=== PATIENT | male | born 1995 | race African-American/Black ===

== ENCOUNTER 2016-04-11 16:11 | Emergency (ER) | payer OTHER ==
[~2016-04-11] VITALS: Wt 71.0 kg
[2016-04-11 17:53] LABS: ADD UMIC YES; URINE BILIRUBIN (Dip) NEGATIVE (NEGATIVE); URINE BLOOD (Dip) 3+ (NEGATIVE); URINE COLOR RED (YELLOW); URINE GLUCOSE (Dip) NEGATIVE (NEGATIVE); URINE KETONES (Dip) TRACE (NEGATIVE); URINE LEUKOCYTE ESTERASE (Dip) NEGATIVE (NEGATIVE); URINE NITRITE (Dip) NEGATIVE (NEGATIVE); URINE TOTAL PROTEIN (Dip) 2+ (NEGATIVE); URINE UROBILINOGEN (Dip) 0.2 E.U./dL (0.1-1.0)
[2016-04-11 18:01] LABS: BACTERIA,URINE FEW; URINE RBCS >200 /HPF (0)
[2016-04-11] MEDS ORDERED: AZITHROMYCIN 250 MG TAB PO STA (18:15)
[2016-04-11] MEDS ORDERED: LIDOCAINE 1% (MDV) 20 ML INJ ONE (18:26)
[2016-04-11] MEDS ORDERED: CEFTRIAXONE 500 MG INJ IM ONE (18:30)
--- NOTE | 2016-04-11 19:01 | ERD ---
ER Documentation Chief Complaint Date/Time DATE: 04/11/16 TIME: 18:51 Chief Complaint BLOOD IN URINE X5 DAYS, NO N/V, NO DISCHARGE HPI This is a 20-year-old male presenting to the emergency department complaining of painful urination for the past few days. Patient states that started have blood in the urine today. He believes that he also has slight discharge with the blood. Patient denies any flank pain, abdominal pain, fevers. Patient states that he is sexually active in the last few times he did not use protection. ROS All systems reviewed and are negative except as per history of present illness. Allergies Allergies: Coded Allergies: No Known Allergy (Unverified , 04/11/16) PMhx/Soc Medical and Surgical Hx: pt denies Medical Hx, pt denies Surgical Hx Hx Alcohol Use: Yes Hx Substance Use: Yes Hx Tobacco Use: Yes Smoking Status: Current every day smoker Physical Exam Vitals Vital Signs Date Time Temp Pulse Resp B/P Pulse Ox O2 Delivery O2 Flow Rate FiO2 04/11/16 16:18 97.6 72 17 136/62 100 Physical Exam GENERAL: well-developed/well-nourished, in no apparent distress, non-toxic appearing HENT: NC/AT, moist mucous membranes EYES: Conjunctiva normal NECK: Supple, no lymphadenopathy PULM: CTA bilaterally, no rales, rhonchi, or wheezing heard CV: Normal S1S2, RRR, good capillary refill GI: Soft, non-distended, non-tender to palpation Normal bowel sounds, no masses or organomegaly felt on exam No gross peritonitis, no bruits Negative Rovsing, negative Sierra, negative McBurney's point, Negative CVAT BACK: No masses EXT: No clubbing, cyanosis, or edema NEURO: Alert and Orientated SKIN: Intact, normal turgor PSYCH: Normal mood and mentation Results 24 hrs Laboratory Tests Test 04/11/16 17:39 Urine Bacteria FEW Urine Bilirubin NEGATIVE Urine Clarity TURBID Urine Color RED Urine Epithelial Cells FEW Urine Glucose NEGATIVE% Urine Hemoglobin 3+ Urine Ketones TRACE Urine Leukocyte Esterase NEGATIVE Urine Microscopic RBC >200/HPF Urine Microscopic WBC 5-10/HPF Urine Nitrite NEGATIVE Urine Specific [place] 1.020 Urine Total Protein 2+ Urine Urobilinogen 0.2 E.U./dL Urine pH 6.0 Current Medications Medications (Trade) Dose Ordered Sig/Stacey Route PRN Reason Start Time Stop Time Status Last Admin Dose Admin Ceftriaxone Sodium (Rocephin) 500 mg ONCE ONCE IM 04/11/16 18:30 04/11/16 18:31 DC 04/11/16 18:24 Azithromycin (Zithromax) 1,000 mg ONCE STAT PO 04/11/16 18:15 04/11/16 18:16 DC 04/11/16 18:23 Lidocaine (Xylocaine 1% (Mdv) 20 ml) 20 ml STK-MED ONCE .ROUTE 04/11/16 18:26 04/11/16 18:27 DC Procedures/MDM This is a 20-year-old male presenting to the emergency department complaining of painful urination for the past few days with hematuria that started today. Patient's dysuria is most likely due to urethritis due to STD. UA was done and was negative for leukocyte esterase and nitrite, Patient had hematuria. A urine culture was sent out. A gonorrhea chlamydia culture was also sent out. In the ED patient was treated for gonorrhea and chlamydia with ceftriaxone 250 mg IM and 1000 mg azithromycin. I discussed the patient to follow-up with his primary care physician for further evaluation and management. I have discussed return to the ER for any worsening signs or symptoms. At this point I have a low suspicion for nephrolithiasis or pyelonephritis, patient has no CVA tenderness or abdominal pain. He is afebrile and appears well. He stable for discharge with precautions to return to the ER for any worsening signs or symptoms are not improving as expected. He understands and agrees with this plan was consulted regarding patient and agrees with plan above Departure Diagnosis: Primary Impression: Hematuria Condition: Stable Patient Instructions: Understanding STDs, Hematuria Additional Instructions: FOLLOW UP WITH YOUR PRIMARY CARE PHYSICIAN TOMORROW.Return to this facility if you are not improving as expected. SHAWANDA BRIONES PA-C Apr 11, 2016 19:01
== END 2016-04-11 18:15 | disposition home or self-care (01) ==
LOC: FTE 16:11
DX: R31.9 Hematuria, unspecified (principal); F17.210 Nicotine dependence, cigarettes, uncomplicated
CPT/HCPCS: 81001; 87086; 87591; J0696; Z7610; 81003; 96372

== ENCOUNTER 2016-06-18 18:38 | Emergency (ER) | payer OTHER ==
[~2016-06-18] VITALS: Ht 193 cm; Wt 70.5 kg
[2016-06-18 18:41] VITALS: Ht 193 cm; Wt 70.5 kg
[2016-06-18 19:17] LABS: ADD SCAN DIFF NO
[2016-06-18 19:21] LABS: BASOPHIL # 0.1 10^3/ul (0.0-0.1); BASOPHILS % 0.6 % (0.0-2.0); EOSINOPHILS # 0.1 10^3/ul (0.0-0.5); EOSINOPHILS % 1.7 % (0.0-7.0); HEMATOCRIT 44.9 % (42.0-52.0); LYMPHOCYTES # 2.6 10^3/ul (0.8-2.9); LYMPHOCYTES % 33.2 % (18.0-55.0); MEAN CORPUSCULAR HEMOGLOBIN 27.3 pg (29.0-33.0); MEAN CORPUSCULAR HGB CONC 33.4 g/dl (32.0-37.0); MEAN CORPUSCULAR VOLUME 81.8 fl (72.0-104.0); MEAN PLATELET VOLUME 10.3 fl (7.4-10.4); MONOCYTE # 0.8 10^3/ul (0.3-0.9); MONOCYTES % 9.7 % (0.0-13.0); NEUTROPHIL # 4.2 10^3/ul (1.6-7.5); NEUTROPHILS % 54.5 % (30.0-74.0); PLATELET COUNT 266 10^3/UL (140-415); RED BLOOD COUNT 5.49 10^6/ul (4.70-6.10); RED CELL DISTRIBUTION WIDTH 13.2 % (11.5-14.5); WHITE BLOOD COUNT 7.7 10^3/ul (4.8-10.8)
[2016-06-18 19:22] LABS: ADD UMIC NO; URINE BILIRUBIN (Dip) NEGATIVE (NEGATIVE); URINE BLOOD (Dip) NEGATIVE (NEGATIVE); URINE COLOR LT. YELLOW (YELLOW); URINE GLUCOSE (Dip) NEGATIVE (NEGATIVE); URINE KETONES (Dip) TRACE (NEGATIVE); URINE LEUKOCYTE ESTERASE (Dip) NEGATIVE (NEGATIVE); URINE NITRITE (Dip) NEGATIVE (NEGATIVE); URINE TOTAL PROTEIN (Dip) NEGATIVE (NEGATIVE); URINE UROBILINOGEN (Dip) 0.2 E.U./dL (0.1-1.0)
[2016-06-18 19:28] LABS: ALBUMIN 4.6 g/dl (3.3-4.9)
[2016-06-18 19:29] LABS: POTASSIUM 3.8 mmol/L (3.5-5.1)
[2016-06-18 19:31] LABS: ALBUMIN/GLOBULIN RATIO 1.35; BILIRUBIN,INDIRECT 0.7 mg/dl (0-1.1); BILIRUBIN,TOTAL 0.7 mg/dl (0.2-1.3); CREATININE 1.01 mg/dl (0.61-1.24)
--- NOTE | 2016-06-18 19:54 | ERA ---
ER Documentation Chief Complaint Date/Time DATE: 06/18/16 TIME: 19:54 Chief Complaint painful urination x 2 days HPI This 20-year-old male presents with dysuria for last 2 days. Denies any hematuria, fevers, flank pain, penile discharge. He was seen approximately 2 months ago for similar episodes although at that time he had hematuria. He was treated for infection which did not relieve his symptoms but his symptoms resolved. He has never had any flank pain. Patient had negative gonorrhea and chlamydia at that time as well upon review of the record. Patient denies any blisters, redness. He has no known exposure to STD although he is sexually active. ROS All systems reviewed and are negative except as per history of present illness. Allergies Allergies: Coded Allergies: No Known Allergy (Unverified , 06/18/16) PMhx/Soc Medical and Surgical Hx: pt denies Medical Hx, pt denies Surgical Hx History of Surgery: No Anesthesia Reaction: No Hx Neurological Disorder: No Hx Respiratory Disorders: No Hx Cardiac Disorders: No Hx Psychiatric Problems: No Hx Miscellaneous Medical Probl: No Hx Alcohol Use: Yes (OCC) Hx Substance Use: Yes Hx Tobacco Use: Yes Smoking Status: Current every day smoker Physical Exam Vitals Vital Signs Date Time Temp Pulse Resp B/P Pulse Ox O2 Delivery O2 Flow Rate FiO2 06/18/16 18:41 98.4 73 20 145/72 100 Physical Exam Const: [] Head: Atraumatic Eyes: Normal Conjunctiva ENT: Normal External Ears, Nose and Mouth. Neck: Full range of motion..~ No meningismus. Resp: Clear to auscultation bilaterally Cardio: Regular rate and rhythm, no murmurs Abd: Soft, non tender, non distended. Normal bowel sounds Skin: No petechiae or rashes Back: No midline or flank tenderness Ext: No cyanosis, or edema Neur: Awake and alert Psych: Normal Mood and Affect Result Diagram: 06/18/16190106/18/161901 Results 24 hrs Laboratory Tests Test 06/18/16 18:56 06/18/16 19:02 Urine Bilirubin NEGATIVE Urine Clarity CLEAR Urine Color LT. YELLOW Urine Glucose NEGATIVE% Urine Hemoglobin NEGATIVE Urine Ketones TRACE Urine Leukocyte Esterase NEGATIVE Urine Nitrite NEGATIVE Urine Specific [place] 1.025 Urine Total Protein NEGATIVE Urine Urobilinogen 0.2 E.U./dL Urine pH 6.0 Alanine Aminotransferase (ALT/SGPT) 32IU/L Albumin 4.6g/dl Albumin/Globulin Ratio 1.35 Alkaline Phosphatase 63IU/L Anion Gap 18 Aspartate Amino Transf (AST/SGOT) 45IU/L Basophils # 0.110^3/ul Basophils % 0.6% Blood Urea Nitrogen 17mg/dl Calcium Level 10.0mg/dl Carbon Dioxide Level 28mmol/L Chloride Level 101mmol/L Creatinine 1.01mg/dl Direct Bilirubin 0.00mg/dl Eosinophils # 0.110^3/ul Eosinophils % 1.7% Globulin 3.40g/dl Glucose Level 82mg/dl HIV (1&2) Antibody NEGATIVE Hematocrit 44.9% Hemoglobin 15.0g/dl Indirect Bilirubin 0.7mg/dl Lymphocytes # 2.610^3/ul Lymphocytes % 33.2% Mean Corpuscular Hemoglobin 27.3pg Mean Corpuscular Hemoglobin Concent 33.4g/dl Mean Corpuscular Volume 81.8fl Mean Platelet Volume 10.3fl Monocytes # 0.810^3/ul Monocytes % 9.7% Neutrophils # 4.210^3/ul Neutrophils % 54.5% Nucleated Red Blood Cells # 0.010^3/ul Nucleated Red Blood Cells % 0.0/100WBC Platelet Count 85586^3/UL Potassium Level 3.8mmol/L Red Blood Count 5.4910^6/ul Red Cell Distribution Width 13.2% Sodium Level 143mmol/L Total Bilirubin 0.7mg/dl Total Protein 8.0g/dl White Blood Count 7.710^3/ul Procedures/MDM CBC and CMP is normal. HIV was sent upon patient request and consents to verbal notification of results and will follow up for results. Urine is negative for blood, leukocytes, nitrates, glucose. Urine was sent for gonorrhea chlamydia. Given the uncertain cause of recurrent dysuria and possible hematuria is suspicious for stones or other source of bleeding given negative specific signs of infection normal renal function. CT abdomen pelvis shows small likely cyst in the right upper pole of the kidney associated with the small and distended stone. There is no evidence of hydronephrosis or active ureteral stones. Patient is currently asymptomatic. Patient will be discharged home with further observation, instructions for clear fluids. Will defer treatment for infection until CT results return or urine culture. Patient should otherwise return sooner for fevers, vomiting, new worsening symptoms as directed and aftercare instructions. Departure Diagnosis: Primary Impression: Genitourinary symptoms Condition: Stable BRAN RHODES MD Jun 18, 2016 19:54
--- NOTE | 2016-06-18 20:42 | RADRPT ---
PROCEDURE: CT Abdomen and Pelvis without contrast CLINICAL INDICATION: Hematuria, pelvic pain TECHNIQUE: Transaxial images were obtained through the abdomen and pelvis on a multi-slice scanner without the intravenous contrast administration. No oral contrast had previously been given. Sagit patricia and coronal re-formations were subsequently reconstructed. One or more of the following dose reduction techniques were used: - Automated exposure control. - Adjustment of the mA and/or kV according to patient size. - Use of iterative reconstruction technique. Radiation dose: CTDIvol = 7.07 mGy; DLP = 421.25 mGy-cm. COMPARISON: No prior studies are available for comparison. FINDINGS: Lung bases: The visualized lung bases appear unremarkable. Liver: Normal in size and in attenuation. There is no focal lesion. Gallbladder: The wall is not thickened. No radiopaque stones are identified. Bile ducts: The intra and extrahepatic bile ducts are normal in caliber. Pancreas: Appears normal with no mass or inflammation evident. Spleen: Normal in size with no focal lesion. Adrenals: Normal with no mass identified. Kidneys, ureters and bladder: There is a 1 cm hypodensity at the anterior superior pole right kidney suspicious for a cyst. A 2 x 5 mm calcification is seen within the superior pole of the right kidn ey compatible with a nonobstructing nephrolith. There is no hydronephrosis. The ureters are unrema rkable but no ureterolith identified. The bladder is suboptimally distended. Reproductive organs: The prostate is not enlarged. Stomach and bowel: The bowel appears unremarkable with no evidence of bowel obstruction or inflammat ion. The stomach appears unremarkable. Appendix: The vermiform appendix is borderline prominent measuring 7 mm. A 5 mm appendicolith is ev ident but there are no surrounding inflammatory changes. Peritoneum: No free intraperitoneal fluid or air is identified. Aorta: Normal in caliber with no aneurysmal dilatation. IVC: Unremarkable. Lymph nodes: A few shoddy retroperitoneal nodes of to 8 mm in diameter are identified. Osseous structures: The osseous elements appear intact. IMPRESSION: 1. A 1 cm hypodensity suspicious for a cyst is seen within the superior pole right kidney along wit h a 2 x 5 mm calcification also within the superior pole suspicious for a nonobstructing nephrolith. There is no hydronephrosis or ureterolithiasis. 2. There is no evidence of bowel obstruction or inflammation. The vermiform appendix is borderline prominent at 7 mm in diameter and a 4 mm appendicolith is evident but there are no surrounding infl ammatory changes. 3. There is no free intraperitoneal fluid or air. 4. Otherwise, unremarkable noncontrast enhanced CT scan of the abdomen and pelvis. Physician Aide Date Time Electronically viewed and signed by Yagn Garcia Physician on 06/18/2016 20:41 RH/
[2016-06-18 20:59] VITALS: BP 132/74; PULSE 74; RESP 16; TEMP 98.4
== END 2016-06-18 20:59 | disposition home or self-care (01) ==
LOC: FTE 18:38
DX: R30.0 Dysuria (principal); F17.210 Nicotine dependence, cigarettes, uncomplicated
CPT/HCPCS: 36415; 74176; 80053; 81003; 85025; 86703; 87086; 87591; Z7502

== ENCOUNTER 2016-06-23 14:22 | Emergency (ER) | payer OTHER ==
[~2016-06-23] VITALS: Wt 71.5 kg
[2016-06-23] MEDS ORDERED: TRIC15SO TP (17:22)
--- NOTE | 2016-06-23 17:27 | ERD ---
ER Documentation Chief Complaint Date/Time DATE: 06/23/16 TIME: 17:23 Chief Complaint RASH AND BACK PAIN FOR THE PAST FEW MONTHS. NO DISTRESS OR TRAUMA HPI This a 20-year-old male who is sexually active with the same partner has sex with his girlfriend and 3 days later developed a rash to his penis and mons pubis area. Says it is not itchy has no penile discharge no swelling no fever. The rash is a white pearly flesh-colored rash. He says his partner is asymptomatic ROS All systems reviewed and are negative except as per history of present illness. Medications Home Meds Active Scripts Trichloroacetic Acid (Tri-Chlor) 15 Ml Solution, 15 ML TP BID for 10 Days, EA Prov:LUIS ALBERTO MATTHEWS DO 06/23/16 Allergies Allergies: Coded Allergies: No Known Allergy (Unverified , 06/18/16) PMhx/Soc History of Surgery: No Anesthesia Reaction: No Hx Neurological Disorder: No Hx Respiratory Disorders: No Hx Cardiac Disorders: No Hx Psychiatric Problems: No Hx Miscellaneous Medical Probl: No Hx Alcohol Use: Yes (OCC) Hx Substance Use: Yes Hx Tobacco Use: Yes Smoking Status: Current some day smoker FmHx Family History: No coronary disease Physical Exam Vitals Vital Signs Date Time Temp Pulse Resp B/P Pulse Ox O2 Delivery O2 Flow Rate FiO2 06/23/16 14:34 99.0 54 20 135/77 98 Physical Exam Const: Well-developed, well-nourished Head: Atraumatic, normocephalic Eyes: Normal Conjunctiva, PERRLA, EOMI, normal sclera, no nystagmus ENT: Normal External Ears, Nose and Mouth, moist mucus membranes. Neck: Full range of motion. No meningismus, no lymphadenopathy. Resp: Clear to auscultation bilaterally, no wheezing, rhonchi, rales Cardio: Regular rate and rhythm, no murmurs, S1 S2 present Abd: Soft, non tender x 4, non distended. Normal bowel sounds, no guarding or rebound, no pulsitile abdominal masses or bruits Skin: No petechiae or rashes, no ecchymosis , no maculopapular rash, small white pearly fleshlike lesions to the penis months previous area that are scattered and mild no vesicles no ulcers Back: No midline or flank tenderness Ext: No cyanosis, or edema, FROM x 4, normal inspection, neurovascularly intact x 4 Neur: Awake and alert, STR 5/5 x 4, sensation intact x 4, no focal findings, cerebellum intact Psych: Normal Mood and Affect Departure Diagnosis: Primary Impression: Molluscum contagiosum Condition: Stable Patient Instructions: Molluscum Contagiosum (Adult) LUIS ALBERTO MATTHEWS DO Jun 23, 2016 17:27
== END 2016-06-23 17:48 | disposition home or self-care (01) ==
LOC: FTE 14:22
DX: B08.1 Molluscum contagiosum (principal); F17.210 Nicotine dependence, cigarettes, uncomplicated
CPT/HCPCS: 99283